=== PATIENT | male | born 1955 | race African-American/Black ===

== ENCOUNTER 2018-10-22 13:19 | Inpatient (IN) ==
[~2018-10-22 13:19] MED LIST: APRESOLINE IV PRN
[2018-10-22 14:16] LABS: ALLEN TEST YES; BLOOD TYPE ARTERIAL; HCO3-(ACT) 28.8 mmoll (20.0-26.0); METHB 1.2 % (0.0-1.5); MODALITY ROOM AIR; O2(CT) 17.4 mL/dL (15.0-23.0); O2HB 94.3 % (95.0-99.0); PCO2(98.6) 44 mmHg (35-45); PO2(98.6) 71 mmHg (60-100); SAMPLE BLOOD; SAO2 97.6 % (95.0-100.0); THB 13.1 g/dL (11.5-17.4); pH(98.6) 7.44 (7.35-7.45)
[2018-10-22] MEDS ORDERED: LOVENOX SUBQ SCH (14:30)
--- NOTE | 2018-10-22 14:51 | EKG Report ---
Test Performed on : 10/22/2018 2:46:09 PM Test Reason : chest pain Blood Pressure : / mmHG Vent. Rate : 074 BPM Atrial Rate : 074 BPM P-R Int : 188 ms QRS Dur : 110 ms QT Int : 432 ms P-R-T Axes : 055 -21 151 degrees QTc Int : 479 ms Normal sinus rhythm. T wave abnormality, consider lateral ischemia Prolonged QT Abnormal ECG No previous ECGs available Unconfirmed Result
[2018-10-22 15:35] LABS: BASO# 0.02 X1000 (0.0-0.2); BASO% 0.3 % (0.0-0.8); EOS% 3.1 % (0.0-10.0); HEMATOCRIT 40.2 % (42.0-52.0); LYMPH# 2.51 X1000 (1.2-3.4); LYMPH% 38.3 % (20.5-51.1); MCH 21.8 PG (27-31); MCHC 32.3 g/dL (33-37); MCV 67.4 FL (81-99); MONO# 0.61 X1000 (0.11-0.59); MONO% 9.3 % (1.7-9.3); MPV 10.4 FL (7.4-10.4); NEUT# 3.21 X1000 (1.4-6.5); PLT 257 X1000 (130-400); RBC 5.96 XMIL (4.7-6.1); RDW 15.3 % (11.5-14.5); WBC 6.55 X1000 (4.8-10.8)
[2018-10-22 15:41] LABS: HEMOGLOBIN A1C 7.6 % (4.8-6.0)
[2018-10-22 15:55] LABS: AGAP 10; ALB/GLOB RATIO 1.2; ALBUMIN 3.8 g/dL (3.5-5.0); ALKALINE PHOSPHATASE 85 U/L (32-122); BUN 10 mg/dL (8-22); CALCIUM 9.7 mg/dL (8.8-10.2); CHLORIDE 103 mmol/L (98-107); COSMO 288; ESTIMATED GFR > 60; GLUCOSE 132 mg/dL (70-104); GOT 15 U/L (10-34); GPT 25 U/L (10-44); POTASSIUM 3.6 mmol/L (3.5-5.1); SODIUM 144 mmol/L (136-145); TCO2 31 mmol/L (25-35); TOTAL PROTEIN 6.9 g/dL (6.3-8.3)
[2018-10-22] MEDS ORDERED: CARDIZEM 125/NS 125 MG/125 ML IVPB IV SCH (16:45)
[2018-10-22 16:58] LABS: EOS 5 % (1-10); LYMPHS 39 % (21-51); MICROCYTOSIS 1+; MONO 11 % (1-9); SEGS 45 % (42-75)
[2018-10-22] MEDS: GLUCOPHAGE PO SCH (17:20)
[2018-10-22] MEDS: LIPITOR PO SCH ×2 (19:46→20:03)
[2018-10-22] MEDS: ZOCOR PO SCH ×2 (19:46→20:03)
[2018-10-22] MEDS: APRESOLINE IV PRN ×2 (19:49→23:50)
[2018-10-22] MEDS: CATAPRES PO SCH ×2 (19:52→20:03)
[2018-10-22] MEDS: COREG PO SCH ×2 (19:52→20:03)
[2018-10-22] MEDS ORDERED: LOPRESSOR PO SCH (21:00)
--- NOTE | 2018-10-22 21:10 | Diag Imaging Result Doc PS360 ---
EXAM: CT ANGIOGRAM RENAL ARTERIES INDICATION: Uncontrolled HTN TECHNIQUE: This exam was performed using automated exposure control, adjustment of mA or kV according to patient size, and/or use of iterative reconstruction technique. COMPARISON: None. FINDINGS: Review of the lung bases reveals an incidental filling defect in a branch of the right pulmonary artery leading to the right lower lobe consistent with pulmonary embolism. There is mild to moderate hepatic steatosis. The gallbladder, spleen, and pancreas are unremarkable. There is low dense nodular thickening involving the right adrenal gland that statistically likely represents an adenoma. The kidneys appear normal. There is a small umbilical hernia that contains only fat. Review of the abdominal segments of the GI tract reveals a normal appendix. The visualized portion of the GI tract is unremarkable, otherwise. There is only mild patchy aortoiliac atherosclerotic calcification. There is no evidence of aortic aneurysm. The mesenteric arteries and celiac trunk are widely patent. There are two right and two left renal arteries. There is trace atherosclerotic calcification at the origin of the main left renal artery. It remains widely patent. The other renal arteries are widely patent as well. IMPRESSION: 1.Mild aortoiliac atherosclerotic calcification with no evidence of flow-limiting renal artery stenosis. 2.Incidental pulmonary embolism involving the right lower lobe. The findings were discussed with Shelley Carlton MD at 10/22/2018 9:07 PM and was acknowledged. Electronically signed by Armando Julian 10/22/2018 9:07 PM
[2018-10-22] MEDS: LOVENOX SUBQ SCH (22:03)
--- NOTE | 2018-10-22 22:34 | HISTORY AND PHYSICAL ---
CHIEF COMPLAINT: Shortness of breath, PND, orthopnea, swelling of legs. Frequent urination. HISTORY OF PRESENT ILLNESS: He is a 63-year-old, male, who came in with above symptoms. Symptoms and signs of congestive heart failure. He slightly had a gallop and the S2 was loud. His blood pressure in my office is substantially very high 220/120. He has been taking the medicine. Basically admitted to the hospital with diastolic acute congestive heart failure and he was admitted in [facility]. The patient has high blood pressure. Started on IV Cardizem drip. I did a CT renal angiogram to rule out renal artery stenosis. He has been reported incidental pulmonary embolism in the right lower lobe as per Dr. Julian. For all these reasons, he was in [facility]. PAST MEDICAL HISTORY: BPH, type 2 diabetes, metabolic syndrome, umbilical hernia. Right inguinal hernia. Hyperlipidemia, hypertension, hyperuricemia, asymptomatic. PAST SURGICAL HISTORY: Ventral hernia repair. Excision cyst in the right shoulder blade. Lacerated wound at the base of right thumb, right inguinal hernia repair. MEDICATIONS: Aspirin 81 mg daily, clonidine 0.2 b.i.d., Christine 0.5/0.4 daily. Lisinopril 40 daily, metformin 500 p.o. b.i.d., Norvasc 10 mg daily, Prilosec 40 daily, simvastatin 40 daily. Discontinue Micardis. ALLERGIES: Not known. SOCIAL HISTORY: . No children. [employer]. No smoking. No alcohol. FAMILY HISTORY: Father of stroke at 72. Mom is 82-year-old, healthy. HEALTH MAINTENANCE: Flu vaccine declined. Pneumococcal vaccine in 2019, tetanus 2017. Last physical exam 03/2018. Colonoscopy declined. REVIEW OF SYSTEMS: HEENT: No headache. No vision problem. No earache. No sore throat. Neck: No goiter. No lymphadenopathy. Cardiopulmonary: No chest pain, shortness of breath, PND, orthopnea, swelling of feet. GI: No nausea, vomiting, abdominal pain. : History of BPH symptoms. Back: No back pain. Neurologic: No focal symptoms and weakness. PHYSICAL EXAMINATION: VITAL SIGNS: On examination, his temperature is 98, blood pressure is 170/121. GENERAL: He is not in acute respiratory distress. HEENT: Atraumatic, normocephalic. Pupils equal, reactive to light. TMs are normal. Nose and throat within normal limits. NECK: Supple. No lymphadenopathy. No goiter. CHEST: Bilateral air entry. HEART: Sounds are regular. Loud S2 with a gallop. ABDOMEN: Belly is soft, nontender. Good bowel sounds. RECTAL: Prostate was enlarged. Heme-negative stool. EXTREMITIES: Trace pedal edema in both legs 1+. NEUROLOGIC: No obvious neurological deficits. INVESTIGATIONS: White cell count 6.8, hematocrit 40, platelets 257. ABG: pH is 7.44, pCO2 of 44, pO2 is 71, bicarb 28 on room air. SMA-7 is normal. Glucose 132, A1c 7.6. ProBNP 237. Cardiac enzymes were negative. ASSESSMENT AND PLAN: 1. A 63-year-old, male with uncontrolled hypertension with resistant hypertension, more than 3 drugs. Consider secondary causes. Rule out renal artery stenosis. 2. Abnormal EKG. Previous cardiac cath 09/29/2015 was negative. Ejection fraction was 48%. Repeat the echocardiogram. 3. Benign prostatic hypertrophy on Christine. 4. Type 2 diabetes. On metformin. 5. Uncontrolled hypertension. Basically, he is on amlodipine, Lisinopril 40 daily. Discontinue metoprolol. Change it to Coreg, clonidine 0.2 p.o. b.i.d. Will use the hydralazine as needed. Also IV Cardizem drip.continue on Dyazide 6. Incidental pulmonary embolism in the right lower lobe. Positive D-dimer. Venous Dopplers. We will give the Lovenox. and will closely monitor. Will follow up. cc: Torito Carlton MD [facility]
[2018-10-23] MEDS: APRESOLINE IV PRN ×4 (04:02→20:31)
[2018-10-23] MEDS: ASPIRIN EC PO SCH (08:14)
[2018-10-23] MEDS: PRINIVIL PO SCH (08:14)
[2018-10-23] MEDS: CATAPRES PO SCH ×2 (08:14→20:30)
[2018-10-23] MEDS: NORVASC PO SCH (08:14)
[2018-10-23] MEDS: FLOMAX PO SCH (08:14)
[2018-10-23] MEDS: DYAZIDE PO SCH (08:14)
[2018-10-23] MEDS: GLUCOPHAGE PO SCH ×2 (08:14→16:58)
[2018-10-23] MEDS: LASIX IV SCH (08:14)
[2018-10-23] MEDS: AVODART PO SCH (08:14)
[2018-10-23] MEDS: COREG PO SCH ×3 (08:14→20:30)
[2018-10-23] MEDS: LOVENOX SUBQ SCH ×2 (08:16→20:31)
[2018-10-23] MEDS ORDERED: DUTASTERIDE PO SCH (09:00)
[2018-10-23] MEDS ORDERED: TAMSULOSIN HCL PO SCH (09:00)
--- NOTE | 2018-10-23 10:06 | Diag Imaging Result Doc PS360 ---
EXAM: CT ANGIOGRM PULMONARY ARTERIES 10/23/2018 HISTORY: PE TECHNIQUE: This exam was performed using automated exposure control, adjustment of mA or kV according to patient size, and/or use of iterative reconstruction technique. COMMENT: The examination is somewhat suboptimal due to beam hardening artifact and patient motion. There are some filling defects in the upper lobe pulmonary arteries bilaterally. This includes the vessels in the lingula and there is also some filling defect in branches in the right middle and lower lobe. There are no filling defects in the main pulmonary arteries. There are some nonspecific mediastinal and hilar nodes. There are calcifications in the subcarina. There is no evidence of acute pulmonary parenchymal disease. There are no abnormal fluid collections. The regional skeleton appears to be intact. There are no previous thoracic studies available for comparison. Compared to the previous abdominal study of 10/22/2018 the filling defects in the right lower lobe pulmonary vessels were present previously. IMPRESSION: Pulmonary emboli as described. The presence of pulmonary embolism was previously reported and discussed by Dr. Julian with Dr. Carlton on 10/22/2018. Electronically signed by Hipolito Conde 10/23/2018 10:04 AM
--- NOTE | 2018-10-23 17:05 | ECHO REPORT ---
ORDER DATE: 10/22/2018 INTERPRETING PHYSICIAN: Kwadwo Donovan MD PROCEDURE: 2D echocardiogram. ECHOCARDIOGRAPHIC MEASUREMENTS: Interventricular septum 1.6 cm. Left ventricular posterior wall 1.6 cm. Diastolic diameter 5.2 cm. Left atrium 4.5 cm. Aorta 4 cm. SUMMARY OF THE 2-DIMENSIONAL IMAGING: Aortic valve leaflets are trileaflet. Pulmonic valve was normal. Tricuspid valve was normal. Mitral valve was normal. Normal left ventricular cavity size. Concentric left ventricular hypertrophy. Estimated ejection fraction of 60%. There is trace mitral regurgitation. Peak velocity across the tricuspid valve was less than 2 m/sec. There is no aortic stenosis or regurgitation. There is no pericardial effusion or obvious intracardiac mass or thrombus seen. cc: MD Torito Burk MD
[2018-10-23] MEDS: LIPITOR PO SCH (20:30)
--- NOTE | 2018-10-23 21:16 | PROGRESS NOTE ---
DATE: 10/23/2018 SUBJECTIVE: The patient is a little better, complains of shortness of breath, PND, orthopnea. OBJECTIVE: Vital signs: Temperature is 98 degrees, pulse is 78, blood pressure still high. HEENT: Within normal limits. Chest: Clear. Cardiovascular: Heart sounds are regular. Abdomen: Belly is soft, nontender. No obvious neurological deficits. LABORATORY DATA: D-dimer is 3.92. ASSESSMENT AND PLAN: 1. Uncontrolled hypertension. Plan is CT renal angiogram negative for renal artery stenosis. Discontinue metoprolol. Continue on Coreg, increasing 12.5 p.o. b.i.d., clonidine 0.2 b.i.d., lisinopril 40 daily, amlodipine 10 daily and also Dyazide. 2. Benign prostatic hypertrophy. Follow up on PSA 3. Continue IV Lasix for swelling. 4. Incidental pulmonary embolism, positive D-dimer on Lovenox subcutaneous q.12. Continue on thrombophilia workup and venous Doppler studies. 5. Diabetes, stable. 6. Evaluation of uncontrolled hypertension. [id number] urine studies, and we will closely monitor. LEVEL OF DOCUMENTATION: 25 minutes. cc: Torito Carlton MD [facility]TDD
[2018-10-24] MEDS: CATAPRES PO SCH ×2 (09:00→20:59)
[2018-10-24] MEDS: LASIX IV SCH (09:00)
[2018-10-24] MEDS: GLUCOPHAGE PO SCH ×2 (09:00→17:42)
[2018-10-24] MEDS: LOVENOX SUBQ SCH ×2 (09:00→20:59)
[2018-10-24] MEDS: ASPIRIN EC PO SCH (09:00)
[2018-10-24] MEDS: FLOMAX PO SCH (09:00)
[2018-10-24] MEDS: AVODART PO SCH (09:00)
[2018-10-24] MEDS: COREG PO SCH ×2 (09:00→20:59)
[2018-10-24] MEDS: PRINIVIL PO SCH (09:00)
[2018-10-24] MEDS: DYAZIDE PO SCH (09:00)
[2018-10-24] MEDS: NORVASC PO SCH (09:00)
--- NOTE | 2018-10-24 18:29 | VASCULAR LAB ---
PROCEDURE NAME: Venous U/S Bilateral Legs - 10/22/2018 REFERRING PHYSICIAN: Regulo Carlton MD INTERPRETING PHYSICIAN: Fer Langston MD TECH: [place]. INDICATIONS: Shortness of breath and pulmonary embolus. FINDINGS: The deep and superficial veins of the lower extremities were imaged throughout their course. They are compressible and patent and without thrombus. INTERPRETATION: No DVT or SVT of either lower extremity. cc: MD Torito Bruce MD
[2018-10-24] MEDS: LIPITOR PO SCH (20:59)
--- NOTE | 2018-10-24 22:12 | PROGRESS NOTE ---
DATE: 10/24/2018 SUBJECTIVE: The patient is a little better. Blood pressure is slowly coming down. He had blood clots in the right lung. Venous Doppler's was negative. OBJECTIVE: Vital Signs: Temperature is 98.4 degrees, pulse is 72, blood pressure is 134/89. HEENT: Within normal limits. Neck: Supple. Chest: Clear. Heart: Sounds are regular. Abdomen: Belly is soft, tender. Decreased edema. INVESTIGATIONS: D-dimer is 3.92. ASSESSMENT AND PLAN: 1. Uncontrolled hypertension. Rule out renal artery stenosis. We will schedule for overnight pulse oximetry. 2. The 24-hour urine studies are pending. 3. Pulmonary embolism. No signs of malignancy. Waiting for thrombophilia, on Lovenox 100 mg subcu q.12 hours. 4. Uncontrolled hypertension. Increasing Coreg 12.5 p.o. b.i.d., clonidine 0.2 p.o. b.i.d., amlodipine 10 daily, and Lasix IV daily, which is going to stop, and Dyazide, lisinopril 40 daily. 5. Type 2 diabetes. On metformin 500 b.i.d. 6. Benign prostatic hypertrophy, on Flomax and Avodart. 7. Will discuss with the family about changing the clonidine into the patch, if he is not allergic to, and then follow up on echo, including left ventricular function and slowly swapping to Xarelto anticoagulation. LEVEL OF DOCUMENTATION: 25 minutes. cc: Torito Carlton MD
[2018-10-25 07:44] VITALS: BP 154/97
[2018-10-25] MEDS: ASPIRIN EC PO SCH (08:46)
[2018-10-25] MEDS: FLOMAX PO SCH (08:46)
[2018-10-25] MEDS: PRINIVIL PO SCH (08:46)
[2018-10-25] MEDS: NORVASC PO SCH (08:46)
[2018-10-25] MEDS: CATAPRES PO SCH (08:46)
[2018-10-25] MEDS: GLUCOPHAGE PO SCH (08:46)
[2018-10-25] MEDS: LASIX IV SCH (08:47)
[2018-10-25] MEDS: AVODART PO SCH (08:47)
[2018-10-25] MEDS: DYAZIDE PO SCH (08:47)
[2018-10-25] MEDS: LOVENOX SUBQ SCH (08:47)
[2018-10-25] MEDS: COREG PO SCH (09:33)
--- NOTE | 2018-10-26 18:55 | DISCHARGE SUMMARY ---
ADMISSION DATE: 10/22/2018 DISCHARGE DATE: 10/25/2018 DISCHARGING DIAGNOSES: 1. Uncontrolled hypertension. Rule out sleep apnea as an outpatient. 2. Benign prostatic hypertrophy, normal PSA 2.0. 3. Type 2 diabetes. 4. Metabolic syndrome. 5. Umbilical hernia. 6. Hyperlipidemia. 7. Hypertension. 8. Hyperuricemia. 9. Pulmonary embolism. Incidental finding on the right side. PROCEDURES: CT pulmonary arteriogram: Pulmonary embolus with filling defects in the pulmonary arteries bilaterally mostly peripherally. Extremity venous study: No DVT or superficial venous thrombosis of either lower extremity. Renal arteriogram: Mild aortoiliac atherosclerotic calcifications. No evidence off renal artery stenosis. Echocardiography report: Concentric LV hypertrophy. Estimated EF 60%. BRIEF HISTORY: Please see the H and P that was done on 10/22/2018. In brief he is a 63-year-old male who was admitted to the hospital with shortness of breath, PND, orthopnea for the last few weeks and blood pressure was astronomically high. He was admitted to the [facility] for hypertensive crisis. HOSPITAL COURSE: 1. Blood pressure is out of control with more than 3 drugs with persistent hypertension. I looked at secondary causes. CT renal angiogram, no evidence of renal artery stenosis. Incidental had a pulmonary embolism on the right side. Patient was given Lovenox 1 mg/kg subcu twice a day and further thrombophilia workup was so far negative for homocystinemia, anti thrombin 3 levels, protein C deficiency, protein S deficiency. Lupus inhibitor is negative. Leiden factor and prothrombin gene mutation were pending. 2. Venous Dopplers were negative. PSA was normal. 3. 24 hour urine studies for aldosterone, pheochromocytoma, cortisol levels were pending. In the meantime, patient was given IV Cardizem drip. Echocardiography showed left ventricular hypertrophy and the treatment was optimized. The patient is much better and blood pressure is 130/88. We will also need outpatient sleep studies. LABS: CBC: White cell count 6.5, hematocrit 40, platelets 257,000. ABG: pH is 7.44, pCO2 44, PO2 71 on room air. SMA 7 is normal. A1c 7.6. ProBNP 237. DISCHARGE INSTRUCTIONS: Discontinue clonidine 0.2 p.o. b.i.d., simvastatin 40 daily, metformin 500 p.o. b.i.d., Christine 1 tablet daily, clonidine patch TTS 3, 1 patch every 7 days, Lotrel 10/40 daily, Xarelto 15 p.o. b.i.d. for 3 weeks and 15 once daily, Coreg 12.5 p.o. b.i.d. We will give an excuse until 11/03/2018. Follow up on the pending labs which includes 24 hour urine studies as well as Leiden factor, prothrombin 3 gene mutation and follow up in my office next week. cc: Torito Carlton MD
== END 2018-10-25 10:37 | disposition home or self-care (01) | DRG 304 ==
LOC: DIRADM → 3S 13:52
PROVIDERS: ADMIT Internal Medicine; ATTEND Internal Medicine
CPT/HCPCS: 71275; 74175; 80048; 80053; 81050; 81240; 81241; 82088; 82382; 82384; 82530; 82805; 83036; 83090; 83880; 84153; 84484; 84585; 85025; 85300; 85301; 85302; 85306; 85379; 85612; 85613; 85730; 86147; 93005; 93010; 93306; 93970; A9270; C8929; G0103; J0360; J1650; J1940; Q9957; Q9967; XXXXX

== ENCOUNTER 2019-08-20 20:42 | Inpatient (IN) ==
[2019-08-20] MEDS ORDERED: ATIVAN ONE (20:53)
[2019-08-20] MEDS ORDERED: NS IV ONE (20:57)
[2019-08-20] MEDS ORDERED: CEREBYX IV ONE (20:57)
[2019-08-20] MEDS ORDERED: ATIVAN IV ONE (20:57)
[2019-08-20] MEDS ORDERED: HUMULIN R IV ONE (20:59)
[2019-08-20] MEDS ORDERED: NS 1,000 ML IV ONE ×2 (20:59→23:25)
[2019-08-20] MEDS ORDERED: LABETALOL IV ONE (21:00)
--- NOTE | 2019-08-20 21:18 | Diag Imaging Result Doc PS360 ---
EXAM: CT HEAD W/O CONTRAST HISTORY: cva /sz htn: 215/114 on xarelto r/o bleed TECHNIQUE: CT head without intravenous contrast COMPARISON: None. FINDINGS: Motion degrades image quality. No parenchymal hemorrhage. No epidural or subdural hematoma. No subarachnoid hemorrhage. No mass identified on this noncontrasted exam. No hydrocephalus. No sinus opacification. IMPRESSION: No hemorrhage. Negative brain CT without contrast. This exam was performed using automated exposure control, adjustment of mA or kV according to patient size, and/or use of iterative reconstruction technique. Electronically signed by Adrian Allen 08/20/2019 9:15 PM
[2019-08-20 21:36] LABS: BASO# 0.04 X1000 (0.0-0.2); BASO% 0.9 % (0.0-0.8); EOS# 0.13 X1000 (0.0-0.7); HEMATOCRIT 39.9 % (42.0-52.0); IMM GRAN# 0.02 X1000 (0.0-0.04); IMM GRAN% 0.5 % (0.0-0.5); LYMPH# 1.91 X1000 (1.2-3.4); LYMPH% 44.4 % (20.5-51.1); MCH 21.5 PG (27-31); MCHC 32.6 g/dL (33-37); MCV 65.8 FL (81-99); MONO# 0.24 X1000 (0.11-0.59); MONO% 5.6 % (1.7-9.3); MPV 11.8 FL (7.4-10.4); NEUT# 1.96 X1000 (1.4-6.5); NEUT% 45.6 % (42.2-75.2); PLT 279 X1000 (130-400); RBC 6.06 XMIL (4.7-6.1); RDW 14.7 % (11.5-14.5)
[2019-08-20 21:41] LABS: ALLEN TEST YES; BE 1.1 mmoll (-3.0-3.0); BLOOD TYPE ARTERIAL; HCO3-(ACT) 25.7 mmoll (20.0-26.0); METHB 1.1 % (0.0-1.5); O2(CT) 17.2 mL/dL (15.0-23.0); O2HB 95.2 % (95.0-99.0); PCO2(98.6) 45 mmHg (35-45); PO2(98.6) 84 mmHg (60-100); SAMPLE BLOOD; SAO2 98.7 % (95.0-100.0); THB 12.8 g/dL (11.5-17.4); pH(98.6) 7.38 (7.35-7.45)
[2019-08-20 21:46] LABS: MODALITY CANNULA
[2019-08-20] MEDS ORDERED: CEREBYX 1,000 MG in NS 50 ML IV ONE (22:00)
[2019-08-20 22:10] LABS: ALB/GLOB RATIO 1.2; ALBUMIN 3.9 g/dL (3.5-5.0); CALCIUM 9.2 mg/dL (8.8-10.2); CREATININE 1.9 mg/dL (0.7-1.2); TOTAL BILIRUBIN 0.5 mg/dL (0.20-1.00); TOTAL PROTEIN 7.1 g/dL (6.3-8.3)
[2019-08-20] MEDS ORDERED: D50W SYRINGE IV PRN (22:54)
[2019-08-20] MEDS ORDERED: HUMULIN R 100 UNIT in NS 100 ML IV SCH (23:00)
[2019-08-20 23:01] LABS: URINE SOURCE CLEAN CATCH
[2019-08-20 23:03] LABS: BILIRUBIN URINE NEGATIVE (NEGATIVE); BLOOD URINE NEGATIVE (NEGATIVE); COLOR STRAW; GLUCOSE URINE >1000 mg/dL (NEGATIVE); KETONE URINE NEGATIVE (NEGATIVE); LEUKOCYTES URINE NEGATIVE (NEGATIVE); NITRITE URINE NEGATIVE (NEGATIVE); PROTEIN URINE NEGATIVE (NEGATIVE); SP GRAVITY URINE 1.024; TURBIDITY URINE CLEAR (CLEAR); UR EPITHELIAL CELLS <10 /HPF (<10); URINE BACTERIA NEGATIVE /HPF; URINE RBC <10 /HPF (<10); URINE WBC <10 /HPF (<10); UROBILINOGEN URINE NORMAL (NORMAL)
[2019-08-20] MEDS: POTASSIUM CHLORIDE 20 MEQ/SWI 20 MEQ/100 ML IVPB IV SCH (23:52)
[2019-08-21] MEDS ORDERED: ASPIRIN PO ONE (00:14)
[2019-08-21 00:48] LABS: CALCIUM 8.7 mg/dL (8.8-10.2); CREATININE 1.6 mg/dL (0.7-1.2); MAGNESIUM 1.8 mg/dL (1.5-2.7); PHOSPHORUS 2.7 mg/dL (2.7-4.5); POTASSIUM 3.1 mmol/L (3.5-5.1)
--- NOTE | 2019-08-21 02:47 | EKG Report ---
Test Performed on : 08/21/2019 00:46:34 AM Test Reason : cp Blood Pressure : / mmHG Vent. Rate : 060 BPM Atrial Rate : 060 BPM P-R Int : 188 ms QRS Dur : 114 ms QT Int : 518 ms P-R-T Axes : 048 -08 -49 degrees QTc Int : 518 ms Normal sinus rhythm. T wave abnormality, consider inferior ischemia T wave abnormality, consider anterolateral ischemia Prolonged QT Abnormal ECG When compared with ECG of 22-OCT-2018 14:46, T wave inversion now evident in Inferior leads T wave inversion now evident in Anterior leads Unconfirmed Result
[2019-08-21] MEDS ORDERED: TYLENOL PO PRN (03:15)
[2019-08-21] MEDS ORDERED: NS 1,000 ML IV ONE (03:15)
--- NOTE | 2019-08-21 03:50 | HISTORY AND PHYSICAL ---
PRIMARY CARE PHYSICIAN: Dr. Carlton. CHIEF COMPLAINT: Slurred speech, right-sided weakness x1 day. HISTORY OF PRESENTING ILLNESS: A 64-year-old male with a history of sleep apnea, hypertension, hyperlipidemia, pulmonary embolism, and diabetes mellitus type 2, who had presented to emergency department 1-day history of having sudden onset of slurred speech and right-sided weakness. As per family, the symptoms were worsening and subsequently he was brought to the emergency department. In the ED, he was evaluated, it was suspected he possibly had a stroke and, due to his presenting symptoms, he will require admission for further management. The patient is a poor historian. He still was slurring some of his speech and most of the history is obtained from family members. At the time of my examination, patient denied any fever, chills, chest pain, shortness of breath or weight changes, but complained of right-sided weakness. PAST MEDICAL HISTORY: Includes sleep apnea, hypertension, hyperlipidemia, pulmonary embolism, diabetes mellitus type 2, BPH. PAST SURGICAL HISTORY: Hernia repair. ALLERGIES: No known drug allergies. CURRENT MEDICATIONS: Include carvedilol 12.5 mg p.o. b.i.d., clonidine 0.3 mg p.o. b.i.d., Lasix 40 mg p.o. daily, hydrochlorothiazide 25 mg p.o. daily, losartan 100 mg p.o. daily, metformin 500 mg p.o. b.i.d., Xarelto 15 mg p.o. b.i.d., simvastatin 40 mg p.o. daily. SOCIAL HISTORY: No history of smoking, alcohol or illicit drug use. FAMILY HISTORY: No history of coronary disease. REVIEW OF SYSTEMS: Fourteen point review of system as listed in HPI. Other systems negative. PHYSICAL EXAMINATION: GENERAL: Cooperative, friendly male. He is resting more comfortably. His speech is still somewhat slurred. VITAL SIGNS: Include temperature 98.3 degrees, pulse 118 respirations 20, blood pressure 215/155. HEENT: Atraumatic, normocephalic. Extraocular movements intact. PERRLA. Tongue is more deviated to the right side. NECK: No masses. CHEST: Clear to auscultation. CARDIOVASCULAR: Regular rate and rhythm. ABDOMEN: Soft. Positive bowel sounds. EXTREMITIES: No edema. NEUROLOGIC: He is awake, alert, oriented x3. GENITOURINARY: No bladder distention. SKIN: Warm. LABORATORIES AND STUDIES: WBCs 4.30, hemoglobin 13.1, hematocrit 39.9, platelets 279,000. Sodium 131, potassium 3.1, chloride 90, CO2 is 28, BUN is 24, creatinine is 1.6. Glucose is 732. CT of the head negative. ASSESSMENT: A 64-year-old male with a history of hypertension, hyperlipidemia, pulmonary embolism, and diabetes mellitus type 2, who had presented to emergency department with a 1-day history of right-sided weakness and slurred speech. As per family, his symptoms were worsening and subsequently they brought him to the emergency department. In the ED, the patient developed some tremor-like symptoms, it is suspected he possibly had seizures. He was started on Dilantin and initially patient was to be transferred to [facility] due to lack of ICU beds here. However, patient refuses transfer. Subsequently, he will be admitted at [facility] for further evaluation and management. 1. Acute cerebrovascular accident. 2. Suspected seizure. 3. Hypertension, hypertensive urgency. 4. Diabetes mellitus type 2 with hyperglycemia. 5. History of pulmonary embolism. PLAN: 1. We will admit patient to ICU. 2. Continue with stroke workup. 3. We will schedule patient for MRI of the brain with and without. 4. We will consult Neurology. 5. Check echo and cardiac carotid duplex. 6. Put patient on seizure precautions and continue with Dilantin. 7. We will monitor blood pressure and allow permissive hypertension. 8. Monitor blood glucose and continue patient on insulin drip. 9. We will hold his anticoagulation till he is evaluated by Neurology. 10. We will continue to follow and reassess, make further recommendation based on patient's clinical course. cc: Дмитрий Platt MD
[2019-08-21] MEDS: POTASSIUM CHLORIDE 20 MEQ/SWI 20 MEQ/100 ML IVPB IV SCH (03:55)
[2019-08-21] MEDS ORDERED: ZOFRAN IV PRN (04:45)
[2019-08-21] MEDS: KEPPRA 500 MG in NS 100 ML IV SCH ×2 (05:41→16:11)
[2019-08-21 06:41] LABS: AGAP 12; BUN 20 mg/dL (8-22); CALCIUM 9.2 mg/dL (8.8-10.2); CHLORIDE 95 mmol/L (98-107); CK PROFILE 90 U/L (24-204); COSMO 290; CREATININE 1.3 mg/dL (0.7-1.2); ESTIMATED GFR > 60; MAGNESIUM 1.8 mg/dL (1.5-2.7); PHOSPHORUS 3.1 mg/dL (2.7-4.5); POTASSIUM 3.3 mmol/L (3.5-5.1); SODIUM 135 mmol/L (136-145); TCO2 28 mmol/L (25-35)
[2019-08-21 06:42] LABS: GLUCOSE 412 mg/dL (70-104)
--- NOTE | 2019-08-21 06:59 | PROVIDER DOCUMENTATION ---
This chart was entered by Lottie Espinoza Scribe, acting as scribe for Eladio Goncalves DO. HPI-Neurological Disorder - General Chief Complaint: Stroke-Like Symptoms Stated Complaint: seizure Time Seen by Provider: 08/20/19 20:45 Source: EMS Allergies/Adverse Reactions: Patient Allergies Allergy/AdvReac Type Severity Reaction Status Date / Time No Known Allergies Allergy Verified 07/17/16 08:39 Home Medications: Home Medication List Medication Instructions Recorded Confirmed Last Taken Type Metformin [Glucophage] 500 mg PO BID CC 09/28/15 08/20/19 10/18/18 21:00 History SIMVAstatin [Zocor] 40 mg PO DAILY 09/28/15 08/20/19 10/22/18 09:00 History Carvedilol [Coreg] 12.5 mg PO BID #60 tab 10/25/18 08/20/19 Unknown Rx Rivaroxaban [Xarelto] 15 mg PO BID #60 tab 10/25/18 08/20/19 Unknown Rx Clonidine HCl 0.3 mg PO BID 08/20/19 08/20/19 Unknown History Furosemide [Lasix] 40 mg PO DAILY 08/20/19 08/20/19 Unknown History Hydrochlorothiazide 25 mg PO DAILY 08/20/19 08/20/19 Unknown History Losartan [Cozaar] 100 mg PO DAILY 08/20/19 08/20/19 Unknown History - History of Present Illness-Neuro Nature of Presenting Problem: 64yom presents to ED by EMS cc according to EMS seizure like activity this evening. EMS reports they were called to pt home for uncontrollable muscle mo vement. EMS reprots pt right arm was flacid, b/p was 214/111, they gave 1 nitro in route. Pt right arm is fine and left arm is flacid in ED with b/p of 215/155, blood sugar greater than 500. Pt does report he is on Xarelto. Pt has hx of HTN, DM, sleep apnea and PE. Pt has no previous hx of seizures or stroke but does have family hx of stroke. Onset/Duration: reports: 1/2 hour ago Timing: reports: still present Context: reports: impaired speech, facial droop, seizure activity Character of Altered Mental Status: reports: agitated, seizure activity Any recent trauma/injury?: reports: none Character of Deficits: reports: new weakness, altered sensation, impaired speech New weakness or altered sensation location:: reports: LUE, LLE, left facial Cognitive Baseline: alert, oriented x3 Associated Symptoms: reports: muscle spasms Similar Symptoms Previously?: No Recently seen or treated by another doctor?: No Review of Systems - Adult - REVIEW OF SYSTEMS - ADULT ROS:: unobtainable per condition Constitutional: reports: see HPI Eyes: reports: see HPI Ears, Nose, Mouth & Throat: reports: see HPI Cardiovascular: reports: see HPI Respiratory: reports: see HPI Gastrointestinal: reports: see HPI Genitourinary: reports: see HPI Musculoskeletal: reports: see HPI Integumentary: reports: see HPI Neurological: reports: see HPI Psychiatric: reports: see HPI Endocrine: reports: see HPI Hematologic/Lymphatic: reports: see HPI Allergic/Immunologic: reports: see HPI All Other Systems: Reviewed and Negative Past History - Adult - PAST MEDICAL HISTORY-ADULT Review of Records: reports: Nursing Assessment Review, Medications Reviewed, Social history reviewed & non-contributory. Major Childhood Illnesses: reports: denies history Cardiovascular: reports: HTN Respiratory: reports: sleep apnea Gastrointestinal: reports: denies history Obstetrical/Gynecological: reports: denies history Genitourinary: reports: denies history Musculoskeletal: reports: denies history Neurological: reports: denies history Endocrine/Immune: reports: Diabetes Other Conditions: reports: denies history - PRIOR SURGERIES/PROCEDURES Surgical/Procedure History: reports: hernia repair - IMMUNIZATION STATUS Childhood Immunizations: See Nurse Assessment Flu Vaccine: See Nurse Assessment - FAMILY HISTORY Family History: reviewed, not pertinent Physical Exam- Neurological - Physical Exam-Neuro Exam Limited by: due to pt condition Initial Vital Signs Reviewed: Yes General Appearance: combative, other (uncontrollable muscle movements) Eye Exam: bilateral eye: normal inspection, PERRL HENMT: normocephalic/atraumatic, moist mucous membranes. negative: angioedema Head Injury: no evidence of injury. negative: active bleeding, Campos's Sign, contusions Respiratory: chest non-tender, lungs clear, normal breath sounds, no pleuratic chest pain, no respiratory distress, no accessory muscle use. negative: crackles, rales, rhonchi, stridor, wheezing Cardiovascular: normal peripheral pulses, no edema, no gallop, no JVD, tachycardia, systolic murmur (1-2/6 at the apex). negative: bradycardia Abdominal Exam: normal bowel sounds, hernia (umbilical) optometrist Exam: normal hearing, PERRL, facial droop (left), facial weakness (left), tongue deviation to R Motor/Sensory: weak motor strength LUE, weak motor strength LLE Neurologic: facial droop (left), motor weakness (left) Integumentary: normal color, normal turgor, warm/dry. negative: diaphoresis, jaundice, rash - Glascow Coma Scale Best Eye Response: (4) open spontaneously Best Verbal Response: (5) oriented Best Motor Response: (6) obeys commands Total Glascow Score: 15 Progress - PLAN OF CARE/RESULTS Progress/Plan/Lab Results: Vital Signs - 8 hr 08/20/19 20:47 08/20/19 20:52 08/20/19 21:19 Temperature 98.3 F 98.3 F Pulse Rate 118 H 115 H 92 H Respiratory Rate 20 20 22 Blood Pressure 101/76 215/155 144/101 O2 Sat by Pulse Oximetry 89 L 92 L 97 Laboratory Results - last 24 hr 08/20/19 08/20/19 08/20/19 20:51 21:13 21:13 WBC 4.30 L RBC 6.06 Hgb 13.0 L Hct 39.9 L MCV 65.8 L MCH 21.5 L MCHC 32.6 L RDW Std Deviation 14.7 H Plt Count 279 MPV 11.8 H Immature Gran % (Auto) 0.5 Neut % (Auto) 45.6 Lymph % (Auto) 44.4 Daggett % (Auto) 5.6 Eos % (Auto) 3.0 Baso % (Auto) 0.9 H Immature Gran # (Auto) 0.02 Neut # (Auto) 1.96 Lymph # (Auto) 1.91 Daggett # (Auto) 0.24 Eos # (Auto) 0.13 Baso # (Auto) 0.04 Specimen Type Sample Site pH pCO2 pO2 HCO3 Base Excess Oxyhemoglobin ABG O2 Sat (Calculated) ABG O2 Saturation ABG Carboxyhemoglobin ABG Methemoglobin Paul Test A-a O2 Difference Total Hemoglobin Lactate Liter Flow Blood Gas Modality FiO2 % Sodium 127 L Potassium 3.0 L Chloride 84 L Carbon Dioxide 25 Anion Gap 18 BUN 25 H Creatinine 1.9 H Estimated GFR/1.73 m2 44 BUN/Creatinine Ratio 13 Glucose 999 H* POC Glucose 500 H D Calculated Osmolality 309 Calcium 9.2 Phosphorus Magnesium Total Bilirubin 0.50 AST 12 ALT 20 Alkaline Phosphatase 136 H Creatine Kinase Troponin T High Sens Total Protein 7.1 Albumin 3.9 Globulin 3.2 Albumin/Globulin Ratio 1.2 Urine Source Urine Color Urine Turbidity Urine pH Ur Specific [place] Urine Protein Ur Glucose (Stick) Ur Ketones (Stick) Urine Blood Urine Nitrite Urine Bilirubin Urobilinogen Dipstick Urine Leukocytes Urine WBC (Auto) Urine RBC (Auto) U Epithel Cells (Auto) Urine Bacteria (Auto) 08/20/19 08/20/19 08/20/19 21:30 22:56 23:45 WBC RBC Hgb Hct MCV MCH MCHC RDW Std Deviation Plt Count MPV Immature Gran % (Auto) Neut % (Auto) Lymph % (Auto) [place] % (Auto) Eos % (Auto) Baso % (Auto) Immature Gran # (Auto) Neut # (Auto) Lymph # (Auto) [place] # (Auto) Eos # (Auto) Baso # (Auto) Specimen Type ARTERIAL Sample Site R RADIAL pH 7.38 pCO2 45 pO2 84 HCO3 25.7 Base Excess 1.1 Oxyhemoglobin 95.2 ABG O2 Sat (Calculated) 17.2 ABG O2 Saturation 98.7 ABG Carboxyhemoglobin 2.40 ABG Methemoglobin 1.1 Paul Test YES A-a O2 Difference 59.0 Total Hemoglobin 12.8 Lactate 5.50 H* Liter Flow 2.0 Blood Gas Modality CANNULA FiO2 % 28.0 Sodium 131 L Potassium 3.1 L Chloride 90 L Carbon Dioxide 28 Anion Gap 13 BUN 24 H Creatinine 1.6 H Estimated GFR/1.73 m2 53 BUN/Creatinine Ratio 15 Glucose 732 H* POC Glucose Calculated Osmolality 300 Calcium 8.7 L Phosphorus 2.7 Magnesium 1.8 Total Bilirubin AST ALT Alkaline Phosphatase Creatine Kinase Troponin T High Sens Total Protein Albumin Globulin Albumin/Globulin Ratio Urine Source CLEAN CATCH Urine Color STRAW Urine Turbidity CLEAR Urine pH 6.0 Ur Specific [place] 1.024 Urine Protein NEGATIVE Ur Glucose (Stick) >1000 A Ur Ketones (Stick) NEGATIVE Urine Blood NEGATIVE Urine Nitrite NEGATIVE Urine Bilirubin NEGATIVE Urobilinogen Dipstick NORMAL Urine Leukocytes NEGATIVE Urine WBC (Auto) <10 Urine RBC (Auto) <10 U Epithel Cells (Auto) <10 Urine Bacteria (Auto) NEGATIVE 08/20/19 08/20/19 23:45 23:45 WBC RBC Hgb Hct MCV MCH MCHC RDW Std Deviation Plt Count MPV Immature Gran % (Auto) Neut % (Auto) Lymph % (Auto) [place] % (Auto) Eos % (Auto) Baso % (Auto) Immature Gran # (Auto) Neut # (Auto) Lymph # (Auto) [place] # (Auto) Eos # (Auto) Baso # (Auto) Specimen Type Sample Site pH pCO2 pO2 HCO3 Base Excess Oxyhemoglobin ABG O2 Sat (Calculated) ABG O2 Saturation ABG Carboxyhemoglobin ABG Methemoglobin Paul Test A-a O2 Difference Total Hemoglobin Lactate Liter Flow Blood Gas Modality FiO2 % Sodium Potassium Chloride Carbon Dioxide Anion Gap BUN Creatinine Estimated GFR/1.73 m2 BUN/Creatinine Ratio Glucose POC Glucose Calculated Osmolality Calcium Phosphorus Magnesium Total Bilirubin AST ALT Alkaline Phosphatase Creatine Kinase 98 Troponin T High Sens 33 H Total Protein Albumin Globulin Albumin/Globulin Ratio Urine Source Urine Color Urine Turbidity Urine pH Ur Specific [place] Urine Protein Ur Glucose (Stick) Ur Ketones (Stick) Urine Blood Urine Nitrite Urine Bilirubin Urobilinogen Dipstick Urine Leukocytes Urine WBC (Auto) Urine RBC (Auto) U Epithel Cells (Auto) Urine Bacteria (Auto) Orders Category Date Time Status Cardiac Monitoring DIRECTED Care 08/20/19 22:55 Active Daily Weights 0500 Care 08/20/19 22:55 Active FSBS/Accucheck Result Q1H Care 08/20/19 22:55 Active If symptomatic Hypoglycemia As Ordered Care 08/20/19 22:55 Active Intake and Output-Strict ORDERED Care 08/20/19 22:55 Active Notify physician if: ORDERED Care 08/20/19 22:55 Active Vital Signs Order ROUTINE Care 08/20/19 22:[address] HEAD W/O CONTRAST [CT] Stat Exams 08/20/19 20:55 Completed ABG [RESP] Routine Lab 08/20/19 21:30 Completed BASIC METABOLIC PANEL [CHEM] Lab 08/20/19 23:45 Completed BASIC METABOLIC PANEL [CHEM] Q4H Lab 08/21/19 03:00 Uncollected BASIC METABOLIC PANEL [CHEM] Q4H Lab 08/21/19 07:00 Uncollected BASIC METABOLIC PANEL [CHEM] Q4H Lab 08/21/19 11:00 Uncollected BASIC METABOLIC PANEL [CHEM] Q4H Lab 08/21/19 15:00 Uncollected BASIC METABOLIC PANEL [CHEM] Q4 Lab 08/21/19 19:00 Uncollected BASIC METABOLIC PANEL [CHEM] Q4 Lab 08/21/19 23:00 Uncollected CBC WITH ELECTRONIC DIFF [HEME] Stat Lab 08/20/19 21:13 Completed CK PROFILE [SP CHEM] Stat Lab 08/21/19 00:39 Completed COMPREHENSIVE METABOLIC PANEL [CHEM] Stat Lab 08/20/19 21:13 Completed MAGNESIUM [CHEM] Lab 08/20/19 23:45 Completed MAGNESIUM [CHEM] Q4 Lab 08/21/19 03:00 Uncollected MAGNESIUM [CHEM] Q4 Lab 08/21/19 07:00 Uncollected MAGNESIUM [CHEM] Q4 Lab 08/21/19 11:00 Uncollected MAGNESIUM [CHEM] Q4 Lab 08/21/19 15:00 Uncollected MAGNESIUM [CHEM] Q4 Lab 08/21/19 19:00 Uncollected MAGNESIUM [CHEM] Q4 Lab 08/21/19 23:00 Uncollected PHOSPHORUS [CHEM] Lab 08/20/19 23:45 Completed PHOSPHORUS [CHEM] Q4 Lab 08/21/19 03:00 Uncollected PHOSPHORUS [CHEM] Q4 Lab 08/21/19 07:00 Uncollected PHOSPHORUS [CHEM] [facility] Lab 08/21/19 11:00 Uncollected PHOSPHORUS [CHEM] Q4 Lab 08/21/19 15:00 Uncollected PHOSPHORUS [CHEM] Q4 Lab 08/21/19 19:00 Uncollected PHOSPHORUS [CHEM] Q4 Lab 08/21/19 23:00 Uncollected TROPONIN T HIGH SENSITIVITY Stat Lab 08/21/19 00:39 Completed UA Reflex [URINALYSIS W/POSS RFLX CULT] [URINALYSIS] Lab 08/20/19 22:56 Completed Stat 0.9% Sodium Chloride Inj [Ns] 1,000 ml Med 08/20/19 20:59 Discontinued IV 999 mls/hr 0.9% Sodium Chloride Inj [Ns] 1,000 ml Med 08/20/19 23:25 Discontinued IV 999 mls/hr 0.9% Sodium Chloride Inj [Ns] 100 ml Med 08/20/19 23:00 Active Insulin Human Regular [Humulin R] 100 unit IV Per Protocol mls/hr Aspirin Med 08/21/19 00:14 Discontinued 325 mg PO NOW ONE Dextrose 50% Syringe [D50w Syringe] Med 08/20/19 22:54 Active See Protocol IV DIRECTED PRN PRN Fosphenytoin [Cerebyx] 1,000 mg Med 08/20/19 22:00 Discontinued 0.9% Sodium Chloride Inj [Ns] 50 ml IV ONCE Insulin Human Regular [Humulin R] Med 08/20/19 20:59 Discontinued 20 unit IV NOW ONE Labetalol Med 08/20/19 21:00 Discontinued 20 mg IV NOW ONE Lorazepam [Ativan] Med 08/20/19 20:53 Discontinued 2 mg .ROUTE .STK-MED ONE Lorazepam [Ativan] Med 08/20/19 20:57 Discontinued 2 mg IV NOW ONE Potassium Chloride 20 Meq/Swi Med 08/20/19 23:45 Active 20 meq in 100 ml IV Q4H EKG [EKG] Stat Ther 08/21/19 00:14 Ordered no ICU beds at [facility] at this time--- [facility] no beds available patient is accepted for transfer to [facility] to ICU when EMS arrived for transfer -- family refuses Transfer now wants him to stay here at [facility] . discussed the risks in depth with and family for delay in definitive treatment of the patient has excepted these risks dr Platt will admit to over flow section -- ER until ICU bed is available Result Diagrams: 08/20/19 21:13 08/20/19 23:45 - EKG 1 Time of EKG reading by physician:: 01:00 EKG Read and Signed by:: Eladio Goncalves EKG Interpretation (*Must complete 3 of following elements*): Abnormal (T wave abnormality, consider inferior ischemia & anterolateral ischemia; prolonged QT; NO STEMI) Rate: 60 Rhythm: NSR Stewart: normal QRS: normal - CT/MRI 1 CT Study: Head Impression: See EMR Report - CONSULTS/PCP/HOSPITALIST Notification #1 *Consult/PCP/Hospitalist*: Transfer Center [facility]/Dr. Joseph Time Discussed: 11:41 Consult Disposition: other (no ICU beds available) #2 Consult: Dr. Quezada/Neurologist at [facility] Time Discussed: 00:08 Consult Disposition: other (ER to ER transfer of pt with Dr. Fallon as accepting ) #3 Consult: Dr. Platt Time Discussed: 01:53 Consult Disposition: Admit Departure - Departure Date of Disposition Decision: 08/20/19 Time of Disposition Decision: 00:18 DIAGNOSIS: Hypertensive crisis, Hypokalemia, Hyperglycemia, Seizure, Dehydration Stroke Qualifiers: CVA mechanism: unspecified Qualified Code(s): I63.9 - Cerebral infarction, unspecified Disposition: ADMITTED INPATIENT 09 Certified Medical Emergency: Emergent Condition: Stable Referrals and Follow-Ups: Shelley Carlton MD [Primary Care Provider] - - Critical Care Note This patient required my direct & personal management of CC.: Yes Total Time (mins): 180 (stabilization and direct patient care -) Critical Care Statement: This patient required my direct personal management to treat or rule out processes, the absence of which, could potentiallly result in sudden, clinically significant life or limb threatening deterioration. Attestation - Physician/ LILA Attestation Patient care was provided by Advanced Practice Provider:: No The physician spent face to face time with patient:: Yes Advanced Practice Provider documentation review:: Supervising physician onsite and consulted in the evaluation and care of this patient. The physician did have a face to face encounter with the patient. - NIH Stroke Scale NIH Type: Initial Evaluation Level of Consciousness: 0-Alert LOC Commands (ask to open & close eyes;make a fist, let go): 0-Obeys Both Correctly Best Gaze (horizontal eye movement): 0-Normal Facial Palsy (show teeth or raise eyebrows & close eyes tght: 1-Minor Paralysis Motor Function-left arm: 2-Some Effort Against [place] Motor Function-right arm: 0-Normal Motor Function-left le-Some Effort Against [place] Motor Function-right le-Normal Best Language(name item/read sentence.Ex-Down to Earth): 1-Mild to Moderate Aphasia NIH Total Score: 6 (limited exam due to pt condition) This chart was documented by the indicated scribe, (Lottie Espinoza Scribe) and accurately reflects the services I performed and decisions made by , Eladio Goncalves DO, as attested by the provider's signature.
[2019-08-21 08:05] LABS: BASO# 0.01 X1000 (0.0-0.2); BASO% 0.1 % (0.0-0.8); EOS# 0.21 X1000 (0.0-0.7); EOS% 2.7 % (0.0-10.0); HEMATOCRIT 38.1 % (42.0-52.0); HEMOGLOBIN 12.1 g/dL (14.0-18.0); LYMPH% 26.8 % (20.5-51.1); MCHC 31.8 g/dL (33-37); MCV 66.3 FL (81-99); MONO# 0.63 X1000 (0.11-0.59); MPV 11.7 FL (7.4-10.4); NEUT# 4.88 X1000 (1.4-6.5); NEUT% 62.4 % (42.2-75.2); PLT 234 X1000 (130-400); RBC 5.75 XMIL (4.7-6.1); RDW 14.6 % (11.5-14.5); WBC 7.83 X1000 (4.8-10.8)
[2019-08-21 08:06] LABS: AGAP 10; BUN 18 mg/dL (8-22); CALCIUM 9.2 mg/dL (8.8-10.2); CHLORIDE 97 mmol/L (98-107); COSMO 286; CREATININE 1.3 mg/dL (0.7-1.2); ESTIMATED GFR > 60; GLUCOSE 322 mg/dL (70-104); MAGNESIUM 1.9 mg/dL (1.5-2.7); PHOSPHORUS 2.4 mg/dL (2.7-4.5); POTASSIUM 3.2 mmol/L (3.5-5.1); SODIUM 136 mmol/L (136-145); TCO2 29 mmol/L (25-35)
[2019-08-21] MEDS ORDERED: POTASSIUM PHOSPHATE 30 MEQ in NS 250 ML IV ONE (08:41)
[2019-08-21] MEDS ORDERED: HYDROCHLOROTHIAZIDE PO SCH (09:00)
[2019-08-21] MEDS: LASIX PO SCH (10:07)
[2019-08-21] MEDS: COREG PO SCH ×2 (10:08→21:17)
--- NOTE | 2019-08-21 10:37 | NEUROLOGY CONSULTATION ---
DATE: 08/21/2019 HISTORY OF PRESENT ILLNESS: Mr. Anaya is 64 years old, and he had neurologic event consistent with focal motor seizure, question of associated acute cerebral infarction. History from the patient is that he felt dizzy and weak through the day yesterday without any focal features. Around 5 p.m., he noted involuntary jerking movement involving the right arm. While he was seated, he noted similar jerking movement involving the right arm and leg simultaneously. He did not speak immediately. He did not notice vision disturbance. At one point, he fell because of right leg problem. He was able to use a cell phone, call 911, and make himself understood. He recognized some slurred speech. He did not have trouble understanding what was said to him. During the time of evaluation by paramedics and then in the emergency room, speech may have been so slurred that he could hardly be understood. Still, he reports never trouble understanding what was said to him. He believes he had some trouble remembering everything that happened while paramedics were attending him, but he is not certain there was ever altered awareness, altered consciousness, memory gap. He did not have headache. There was no tongue biting, lip biting, urinary incontinence. The right limb jerking was intermittent over a period of a few hours. The patient and family report no limb jerking since last night. Family at the bedside now, including , reports he is back to baseline mentally. There is not history of prior similar incident. He has not had prior abnormal focal motor activity, hemiparesis, other focal weakness. He has never had diagnosed stroke. He has not had previous seizure. He reports an episode a few years ago of apparent sudden complete global blindness occurring in the night, resolving over 15 minutes with rest. He did not check blood sugar or blood pressure then. There was no focal neurologic deficit, limb jerking, or altered awareness then. That has not recurred. He has longstanding diabetes mellitus. He does not check blood sugars at home. Blood sugar was recorded at 999 on presentation last night, in the 200 to 300 range in recent hours. Risk factors include diabetes mellitus as above, hypertension, dyslipidemia, sleep apnea. There is history of pulmonary embolus, treated with Xarelto. Vital sign record shows initial systolic blood pressure 101, later 215, recently 140s to 150s. He has been afebrile. Heart rate has ranged from 118 on presentation to 60s in recent hours. Noncontrast CT of the head shows nothing remarkable. Brain MRI, EEG, echocardiogram, carotid ultrasound have been ordered. On exam now, Mr. Anaya is awake, alert, attentive, oriented, appropriate, and conversant. Speech is not significantly dysarthric. Language function is intact on careful bedside testing. Recent and remote memory are good. Head and neck are unremarkable. Visual reynoso are full, tested monocularly and binocularly by confrontational finger counting. Extraocular movements are full. Facial motility is symmetric. Facial sensation is intact. Gag is intact. Palate is midline. Tongue protrudes slightly toward the right. Shoulder shrug is equal. Strength is normal in the arms and legs. Limb tone is symmetric. He did well on [id number] testing bilaterally. He did rapid alternating movements symmetrically well with the hands. He has a significant length- dependent sensory loss, typical stocking pattern symmetrically over the feet. I did not test his gait. Reflexes are 1+ symmetrically at the wrists, and absent at the ankles bilaterally. IMPRESSION: 1. Intermittent involuntary right limb movement. 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 Reason for seizure in this age group would statistically be more likely acute stroke, but in this case, I suspect the extreme hyperglycemia is the explanation. 2. The only focal finding on my exam now is slight tongue protrusion toward the right. I suspect he had a postictal right hemiparesis, which has almost completely resolved now. This is still consistent with acute ischemic left hemisphere infarction, and he certainly has risk factors for that. Initial negative noncontrast CT does not exclude acute infarction. If there is infarction, I suspect this will be subcortical and small. 3. Clinical evidence of peripheral neuropathy, presumed diabetic neuropathy. He does give some history of dysesthesia. I do not think we need to address this problem urgently. I encouraged him to be aggressive with management of his risk factors. If workup does not show evidence of acute infarction, we can treat blood pressure aggressively, continue treating blood sugar and lipids, follow clinically. If electroencephalogram is unremarkable, I do not think we will need to add medicine for seizure control at this point. If electroencephalogram is not normal, we can reconsider. Thank you for asking Neurology to see Mr. Anaya. cc: MD Torito Dykes III, MD MTDHuma
[2019-08-21 11:25] LABS: EOS 4 % (1-10); LYMPHS 25 % (21-51); MICROCYTOSIS 1+; MONO 10 % (1-9); SEGS 61 % (42-75)
[2019-08-21] MEDS: HUMULIN R SUBQ SCH ×3 (12:16→21:17)
--- NOTE | 2019-08-21 12:31 | EEG REPORT ---
DATE: 08/21/2019 COMMENT: This is a digitally recorded EEG on a 64-year-old patient with history suggesting recent focal motor seizure involving the right limbs, extreme hyperglycemia. FINDINGS: During waking, 8.5-9 hertz posterior rhythm at low to medium amplitude is present bilaterally, generally poorly sustained with uncertain reactivity to eye opening. Background contains polymorphic and rhythmic theta frequencies over the frontal and central regions symmetrically. Drowsing and stage 2 sleep were recorded with symmetric features. Photic stimulation did not significantly alter the record. Hyperventilation was not done. No definite epileptiform discharge was identified. INTERPRETATION: Normal EEG. CORRELATION: The absence of epileptiform discharges on a single EEG does not exclude a clinical diagnosis of seizures, but there is nothing on this record to suggest continued tendency to seizure. cc: MD Torito Dykes III, MD
[2019-08-21] MEDS: ZOCOR PO SCH (12:36)
[2019-08-21] MEDS: COZAAR PO SCH (12:37)
[2019-08-21] MEDS: CATAPRES PO SCH ×2 (12:38→21:17)
--- NOTE | 2019-08-21 22:22 | ECHO REPORT ---
ORDER DATE: 08/21/2019 MEASUREMENTS: Septal thickness 1.8, left ventricular internal diameter end diastole 5.0, posterior wall thickness 1.2, left ventricular internal diameter end systole 3.5, aortic root 4.4, left atrium 4.9. SUMMARY: 1. Adequate quality study. 2. Aortic valve is trileaflet and opens normally on 2-dimensional images. The peak gradient across the aortic valve is approximately 5 mmHg. Mitral, tricuspid and pulmonic valves are without evidence of structural abnormality with trace mitral regurgitation. The aortic root is mildly enlarged. 3. Normal left ventricular chamber size with moderate concentric left hypertrophy is demonstrated. The estimated left ventricular ejection fraction appears to be approximately 60%. No regional wall motion abnormality can be appreciated. Doppler suggests grade 1 left ventricular diastolic dysfunction. The left atrium is moderately enlarged. The right atrium and right ventricle are normal in size with grossly preserved right ventricular systolic function. 4. No pericardial effusion. 5. Inferior vena cava not well demonstrated. cc: MD Дмитрий Carrillo MD Jagan Reddy, MD
[2019-08-22 03:36] LABS: AGAP 12; BUN 15 mg/dL (8-22); CALCIUM 8.6 mg/dL (8.8-10.2); CHLORIDE 99 mmol/L (98-107); COSMO 288; CREATININE 1.1 mg/dL (0.7-1.2); ESTIMATED GFR > 60; GLUCOSE 279 mg/dL (70-104); MAGNESIUM 1.6 mg/dL (1.5-2.7); PHOSPHORUS 2.6 mg/dL (2.7-4.5); SODIUM 139 mmol/L (136-145); TCO2 28 mmol/L (25-35)
[2019-08-22] MEDS: KEPPRA 500 MG in NS 100 ML IV SCH ×2 (03:50→14:24)
--- NOTE | 2019-08-22 06:49 | Carotid Study ---
DATE: 08/21/2019 DATE OF STUDY: 08/21/19. REQUESTING PHYSICIAN: Dr. Platt. CORRECTIONAL CAPTAIN: Juvenal. INDICATIONS: CVA. EQUIPMENT: SoftoCouponid E 9 ultrasound system with a 9 L-D transducer. FINDINGS: Complete diagram of ultrasound and this could be seen scanned in patient's medical record. The peak systolic velocity noted on the right side in the proximal internal carotid artery is noted to be 76. The peak systolic velocity on the left side is noted in the distal internal carotid artery and is noted to be 75. His cannulated internal common ratio on the right is 1.28 and on the left 1.12. Calculated stenosis on the right 0 to 39 percent, left 0 to 39 percent. There appears to be some atherosclerosis of the carotid bulb, but this does not produce a hemodynamically significant flow-limiting stenosis. Both vertebral arteries were antegrade flow. INTERPRETATION: By strict velocity criteria, no hemodynamically significant flow-limiting stenosis. cc: MD Дмитрий Bae MD Jagan Reddy, MD
[2019-08-22 07:14] LABS: BASO# 0.02 X1000 (0.0-0.2); BASO% 0.3 % (0.0-0.8); EOS# 0.34 X1000 (0.0-0.7); EOS% 5.2 % (0.0-10.0); HEMATOCRIT 38.1 % (42.0-52.0); HEMOGLOBIN 12.1 g/dL (14.0-18.0); LYMPH# 2.54 X1000 (1.2-3.4); MCH 21.2 PG (27-31); MCHC 31.8 g/dL (33-37); MCV 66.7 FL (81-99); MONO# 0.46 X1000 (0.11-0.59); MONO% 7.1 % (1.7-9.3); MPV 11.2 FL (7.4-10.4); NEUT# 3.15 X1000 (1.4-6.5); NEUT% 48.4 % (42.2-75.2); PLT 228 X1000 (130-400); RBC 5.71 XMIL (4.7-6.1); RDW 14.7 % (11.5-14.5); WBC 6.51 X1000 (4.8-10.8)
[2019-08-22 07:32] LABS: AGAP 12; ALB/GLOB RATIO 1.1; ALBUMIN 3.2 g/dL (3.5-5.0); ALKALINE PHOSPHATASE 81 U/L (32-122); BUN 13 mg/dL (8-22); CALCIUM 8.4 mg/dL (8.8-10.2); CHLORIDE 101 mmol/L (98-107); CHOLESTEROL 163 mg/dL (0-200); COSMO 291; CREATININE 1.1 mg/dL (0.7-1.2); ESTIMATED GFR > 60; GLUCOSE 264 mg/dL (70-104); GOT 12 U/L (10-34); GPT 16 U/L (10-44); HDL 37 mg/dL (35-55); LDL 102 mg/dL; SODIUM 141 mmol/L (136-145); TCO2 28 mmol/L (25-35); TOTAL BILIRUBIN 0.28 mg/dL (0.20-1.00); TOTAL PROTEIN 6.2 g/dL (6.3-8.3); TRIGLYCERIDES 119 mg/dL (39-160); VLDL 24 mg/dL
[2019-08-22] MEDS: HUMULIN R SUBQ SCH ×4 (07:34→20:39)
[2019-08-22 07:39] LABS: MAGNESIUM 1.8 mg/dL (1.5-2.7); PHOSPHORUS 2.6 mg/dL (2.7-4.5)
[2019-08-22] MEDS ORDERED: POTASSIUM PHOSPHATE 30 MEQ in NS 250 ML IV ONE (08:06)
[2019-08-22] MEDS ORDERED: KLOR-CON PO ONE (08:07)
[2019-08-22] MEDS: CATAPRES PO SCH ×2 (08:57→20:39)
[2019-08-22] MEDS: COZAAR PO SCH (08:57)
[2019-08-22] MEDS: ZOCOR PO SCH (08:57)
[2019-08-22] MEDS: COREG PO SCH ×2 (08:57→20:39)
[2019-08-22] MEDS: LASIX PO SCH (08:57)
[2019-08-22] MEDS ORDERED: CHLORASEPTIC SPRAY MT PRN (09:24)
--- NOTE | 2019-08-22 12:18 | Diag Imaging Result Doc PS360 ---
EXAM: MRI BRAIN W/WO CONTRAST INDICATION: stroke COMPARISON: CT head dated 08/20/2019. No prior MRI brain is available for comparison. FINDINGS: There is no evidence of acute infarct. There is patchy T2/FLAIR hyperintensity in the subcortical periventricular white matter suggesting moderate microangiopathy. On the coronal gradient images, there is a small focus of decreased signal in the right cerebellar hemisphere adjacent to the fourth ventricle. There are numerous other miniscule foci of low signal on gradient seen throughout the brain. They are barely perceptible. Differential considerations include multiple cavernomas or amyloid angiopathy. If further evaluation is desired, addition of a SWI (SWAN) sequence may be helpful. Otherwise, there is no discrete intracranial mass, mass effect, or intracranial hemorrhage. There is no evidence of abnormal intracranial enhancement. The surrounding soft tissues and bony structures are essentially unremarkable. IMPRESSION: 1.Numerous small foci of low signal seen throughout the brain on gradient suggesting multiple cavernomas or possibly amyloid angiopathy. Please see above discussion. 2.Suggestion of moderate white matter microangiopathy. 3.No evidence of acute infarct. Electronically signed by Armando Julian 08/22/2019 12:16 PM
--- NOTE | 2019-08-22 12:45 | NEUROLOGY PROGRESS NOTE ---
DATE: 08/22/2019 Mr. Anaya has not had any further episodes of involuntary limb jerking or other seizure-like activity. He reports having some sore throat or dry throat. He is feeling well otherwise. Blood sugars have been better controlled. On exam, he is awake, alert, attentive. Limb tone is symmetric. I do not find any focal motor deficit on brief bedside testing. Speech is not dysarthric. Facial motility is symmetric. EEG did not show epileptiform discharge or tendency to seizure. MRI showed typical age-related micro ischemic change but nothing focal or acute. I am optimistic he will continue stable neurologically with continued stable blood sugars. I do not have any other suggestion from Neurology standpoint. I encouraged him to continue management of his blood sugar and other risk factors. Thanks for asking us to see Mr. Anaya. cc: MD Torito Dykes III, MD MTDD
[2019-08-22] MEDS: MYCOSTATIN SUSP PO SCH ×3 (13:53→20:39)
--- NOTE | 2019-08-22 21:45 | PROGRESS NOTE ---
DATE: 08/22/2019 SUBJECTIVE: A 64-year-old male came in with altered mental status, possible seizure, and complaints of sore throat, admitted yesterday. I have seen him in the ER after seen by the hospitalist and he was waiting to be admitted in [facility]. He was on insulin drip with blood sugar 720. He was noncompliant. His A1c 14.2. Appreciated neurology consult. As he alluded, tongue is a little bit deviated towards the right side and the patient has stopped working since March, seeking for disability. PAST MEDICAL HISTORY: Reviewed. PAST SURGICAL HISTORY: Reviewed. MEDICINES: Reviewed. ALLERGIES: Not known. OBJECTIVE: Is 97.8 degrees, pulse is 54, blood pressure is 169/99, 98% on room air.HEENT: Within normal limits. Neck: Supple, no lymphadenopathy. Chest: Bilateral air entry. Heart: Sounds are regular. Belly: Is soft, nontender. Good bowel sounds. No peripheral edema, cyanosis. No obvious neurological deficits. LABORATORY DATA: White cell count 6.5, hematocrit 38, platelets 228,000. Sodium 140, potassium 3.0, chloride 101, BUN 13, creatinine 1.1, glucose 60, blood sugar 264, A1c 14.0, phosphorus is low. Total protein 6.2, cholesterol 163, LDL 102. Urinalysis positive for glucose. 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 No evidence of acute infarct. Echocardiography with Doppler, LV systolic function is well preserved, 66%. Diastolic dysfunction. Moderate concentric left hypertrophy noted. Carotid Dopplers were negative. CT head was negative. ASSESSMENT AND PLAN: 1. 64-year-old white male came in with altered mental status, possible seizure. EEG is negative. MRI was ruled out for acute stroke. No neurological deficits and uncontrolled diabetes, A1c 14 on sliding scale with insulin coverage. The patient on the insulin sliding scale coverage. We will slowly start on metformin after 48 hours. 2. Hypertension heart disease on Coreg, clonidine, and losartan. 3. Hyperlipidemia on Zocor. Continue on aspirin. 4. Possible seizure is not very convincing and does not need long-term antiseizure medicines. 5. Sore throat Chloraseptic sprays. 6. Hypokalemia and hypophosphatemia, replaced the K-Phos, and will follow up. LEVEL OF DOCUMENTATION: 25 minutes. cc: Torito Carlton MD
[2019-08-23] MEDS: KEPPRA 500 MG in NS 100 ML IV SCH (04:07)
[2019-08-23 06:20] LABS: AGAP 11; BUN 11 mg/dL (8-22); CALCIUM 8.7 mg/dL (8.8-10.2); CHLORIDE 102 mmol/L (98-107); COSMO 286; CREATININE 0.9 mg/dL (0.7-1.2); ESTIMATED GFR > 60; GLUCOSE 195 mg/dL (70-104); POTASSIUM 2.9 mmol/L (3.5-5.1); SODIUM 141 mmol/L (136-145); TCO2 28 mmol/L (25-35)
[2019-08-23] MEDS: HUMULIN R SUBQ SCH ×4 (06:20→20:40)
[2019-08-23] MEDS: LASIX PO SCH (08:26)
[2019-08-23] MEDS: ZOCOR PO SCH (08:26)
[2019-08-23] MEDS: COREG PO SCH ×2 (08:26→20:39)
[2019-08-23] MEDS: CATAPRES PO SCH ×2 (08:26→20:39)
[2019-08-23] MEDS: COZAAR PO SCH (08:26)
[2019-08-23] MEDS: MYCOSTATIN SUSP PO SCH ×4 (08:26→20:39)
[2019-08-23] MEDS ORDERED: POTASSIUM PHOSPHATE 30 MEQ in NS 250 ML IV ONE (09:56)
[2019-08-23] MEDS ORDERED: KLOR-CON PO ONE (09:56)
--- NOTE | 2019-08-23 11:50 | PROGRESS NOTE ---
DATE: 08/23/2019 SUBJECTIVE: The patient does not have any insurance. He is not buying the medications. He is living with samples. He is not able to control the blood sugars. Potassium 2.9. Sore throat is better. MRI findings, no evidence of acute stroke. PHYSICAL EXAMINATION: Vital signs: Temperature is 97 degrees, vitals are stable. Blood pressure is running high. 265 pounds. HEENT: Within normal limits. No signs of infection in the throat. Chest: Clear. Heart: Sounds are regular. Abdomen: Belly is soft, nontender. Neurologic: No focal deficits. ASSESSMENT AND PLAN: 1. It does not appear to be seizure. EEG is normal. Discontinue Keppra. 2. Hypertensive heart disease. Comply with medications, clonidine, Coreg, losartan, and Lasix. 3. Hypokalemia. Replace the potassium today. 4. Uncontrolled diabetes. A1c is 14.4. Start on metformin 850 t.i.d. with meals. 5. Hyperlipidemia, on Zocor. All the workup was negative. We will discuss with the family about buying medications to prevent future strokes. LEVEL OF DOCUMENTATION: 25 minutes. cc: Torito Carlton MD MTDD
[2019-08-23] MEDS: GLUCOPHAGE PO SCH ×2 (12:30→17:01)
[2019-08-23] MEDS ORDERED: APRESOLINE IV PRN (17:37)
[2019-08-24] MEDS: HUMULIN R SUBQ SCH ×2 (06:26→11:07)
[2019-08-24 08:05] VITALS: BP 173/103
[2019-08-24 09:21] LABS: AGAP 14; ALB/GLOB RATIO 1.1; ALBUMIN 3.7 g/dL (3.5-5.0); ALKALINE PHOSPHATASE 94 U/L (32-122); BUN 9 mg/dL (8-22); CALCIUM 9.4 mg/dL (8.8-10.2); CHLORIDE 100 mmol/L (98-107); COSMO 286; CREATININE 0.9 mg/dL (0.7-1.2); ESTIMATED GFR > 60; GLUCOSE 234 mg/dL (70-104); GOT 14 U/L (10-34); GPT 18 U/L (10-44); POTASSIUM 3.5 mmol/L (3.5-5.1); SODIUM 140 mmol/L (136-145); TCO2 26 mmol/L (25-35); TOTAL BILIRUBIN 0.46 mg/dL (0.20-1.00); TOTAL PROTEIN 7.1 g/dL (6.3-8.3)
[2019-08-24] MEDS: COZAAR PO SCH (09:51)
[2019-08-24] MEDS: CATAPRES PO SCH (09:51)
[2019-08-24] MEDS: GLUCOPHAGE PO SCH ×2 (09:51→11:12)
[2019-08-24] MEDS: LASIX PO SCH (09:52)
[2019-08-24] MEDS: ZOCOR PO SCH (09:52)
[2019-08-24] MEDS: COREG PO SCH (09:52)
[2019-08-24] MEDS: MYCOSTATIN SUSP PO SCH (09:53)
--- NOTE | 2019-08-26 09:29 | DISCHARGE SUMMARY ---
ADMISSION DATE: 08/21/2019 DISCHARGE DATE: 08/24/2019 DISCHARGING DIAGNOSIS: Altered mental status due to metabolic encephalopathy. SECONDARY DIAGNOSES: 1. Uncontrolled hypertension. 2. Benign prostatic hypertrophy. 3. Type 2 diabetes poorly controlled due to noncompliance, A1c 14.4. 4. Metabolic syndrome. 5. Umbilical hernia. 6. Hyperlipidemia. 7. Hyperuricemia. CONSULTS: Dr. Causey. PROCEDURES: MRI radiology: MRI of the brain no evidence of acute infarct and chronic ischemic changes. CT head was no hemorrhage. Negative brain. Carotid Doppler studies. Findings are no hemodynamics stenosis in either internal carotid system. EEG normal. No evidence of seizure activity. BRIEF HISTORY: Please see the H and P that was done by hospitalist. In brief he is a 64-year-old male basically came in with altered mental status, possible seizure activity on the right side. Hyperglycemia 720 with DKA. Patient was resuscitated in the ER with DKA protocol. Further workup. Anion gap was normal. He retired in March and he is not taking the medicines on a daily basis. Patient was admitted in [facility]. HOSPITAL COURSE IS FOLLOWS: 1. Altered mental status, questionable seizure. There was no inkling of having any structural diseases in the brain. His MRI was negative for infarct. EEG was normal. He was given IV Keppra. Carotid Dopplers were negative. 2. Uncontrolled hypertension, rule out sleep apnea. Previous workup was negative for secondary causes. He needs to comply with medications. Echocardiography showed hypertension, heart disease. 3. Uncontrolled diabetes A1c 14.4, diet and exercise. Increasing the metformin 850 mg t.i.d. along with B12 tablets. LABS: During this admission as follows CBC: White cell count 6.5, hematocrit 38, platelets 228,000. Sodium 140, potassium 3.5, chloride 100, BUN 9, creatinine 0.9, glucose 234. A1c 14.0. LFTs were normal. Cholesterol 163, LDL 102. DISCHARGE INSTRUCTIONS ARE FOLLOWS: 1. Zocor 40 daily. 2. Coreg 12.5 p.o. b.i.d. 3. Clonidine 0.3 p.o. b.i.d. 4. Lasix 40 daily. 5. Losartan 100 daily. 6. Vitamin folic acid, B6 1 tablet daily. 7. Metformin 850 mg t.i.d. 8. Potassium 20 mEq daily. 9. Aspirin 81 mg daily. 10. Follow up in my office in 2 weeks. cc: MD Elysia Briseno III, MD
== END 2019-08-24 11:40 | disposition home or self-care (01) | DRG 304 ==
LOC: SUPCPDRO → ED 20:42 → SUATTDRO 08-21 04:12 → EDIPHOLD 08-21 04:12 → 2N 08-21 11:02
PROVIDERS: ADMIT Internal Medicine; ATTEND Internal Medicine